=== PATIENT | male | born 1980 | race Caucasian/White ===

== ENCOUNTER 2016-04-03 20:03 | Emergency (ER) | payer SELFPAY ==
[2016-04-03] MEDS ORDERED: Tetanus-Diptheria Toxoids* 0.5 ML SYRINGE IM ONE (20:30)
[2016-04-03] MEDS ORDERED: Amoxicillin/Clavulanate TAB* 875 MG PO ONE (21:08)
[2016-04-03] MEDS ORDERED: Tetan/Diph/Pertus SYR(Tdap)* 0.5 ML SYR(BOOSTRIX) use SYR IM ONE (21:10)
[2016-04-03 21:37] VITALS: BP 127/88
--- NOTE | 2016-04-03 21:47 | RAD ---
INDICATION: Left hand crush injury. TECHNIQUE: 2 views of the left hand were obtained. FINDINGS: There is soft tissue swelling present around the distal phalanx of the ring finger. There is a transverse fracture extending through the tuft of the distal phalanx of the ring finger. The fracture fragments are slightly distracted and otherwise nondisplaced. Joint spaces appear maintained. IMPRESSION: TRANSVERSE FRACTURE OF THE TUFT OF THE DISTAL PHALANX OF THE RING FINGER.
--- NOTE | 2016-04-03 22:18 | ED ---
Chet Hernandez Aidan, scribed for Yasir Troncoso MD on 04/03/16 at 2110 . Laceration/Wound HPI - HPI Summary HPI Summary: 35 y/o male presents to the ED with a complaint of an acute, constant, mildly painful (2/10) laceration half way up the nail on his left ring finger that resulted from a crush injury earlier today. Pt has not had a tetanus shot in the past 5 years. - History of Current Complaint Stated Complaint: LT RING FINGER LAC Time Seen by Provider: 04/03/16 20:22 Hx Obtained From: Patient, Family/Phlebotomy Technician Mechanism of Injury: Other - crush trauma Onset/Duration: Sudden Onset, Lasting Minutes - POULTRY TRIMMER, Still Present Aggravating: Other - unknown Alleviating: Other - unknown Timing: Constant Onset Severity: Moderate Current Severity: Mild Pain Intensity: 2 Pain Scale Used: 0-10 Numeric Associated Signs & Symptoms: Negative - Allergy/Home Medications Allergies/Adverse Reactions: Allergies Allergy/AdvReac Type Severity Reaction Status Date / Time Pollen Extract Allergy Mild Hives Verified 01/27/12 09:59 grass Allergy Mild Hives Uncoded 01/27/12 10:00 trees Allergy Mild Hives Uncoded 01/27/12 10:00 PMH/Surg Hx/FS Hx/Imm Hx Endocrine/Hematology History: Denies: Hx Diabetes, Hx Thyroid Disease Cardiovascular History: Denies: Hx Hypertension Respiratory History: Denies: Hx Asthma, Hx Chronic Obstructive Pulmonary Disease (COPD) GI History: Denies: Hx Ulcer - Surgical History Surgery Procedure, Year, and Place: childhood: Tubes in ears, testicular surgery. T&A Infectious Disease History: No Infectious Disease History: Denies: Hx Clostridium Difficile, Hx Hepatitis, Hx Human Immunodeficiency Virus (HIV), Hx of Known/Suspected MRSA, Hx Shingles, Hx Tuberculosis, Hx Known/ Suspected VRE, Hx Known/Suspected VRSA, History Other Infectious Disease, Traveled Outside the [place] in Last 30 Days - Family History Known Family History: Positive: Hypertension - Social History Occupation: Employed Full-time Lives: With Family Alcohol Use: Occasionally Substance Use Type: Reports: None Smoking Status (MU): Never Smoked Tobacco Have You Smoked in the Last Year: No Review of Systems Constitutional: Negative Eyes: Negative ENT: Negative Cardiovascular: Negative Respiratory: Negative Gastrointestinal: Negative Genitourinary: Negative Musculoskeletal: Negative Skin: Other - laceration half way up the nail of the left ring finger. Negative: Rash, Bruising All Other Systems Reviewed And Are Negative: Yes Physical Exam Triage Information Reviewed: Yes Vital Signs On Initial Exam: Initial Vitals Temp Pulse Resp BP Pulse Ox 99 F 83 18 144/88 99 04/03/16 20:05 04/03/16 20:05 04/03/16 20:05 04/03/16 20:05 04/03/16 20:05 Vital Signs Reviewed: Yes Appearance: Positive: Well-Appearing - comfortable, pleasant, alert, No Pain Distress Skin: Positive: Warm, Skin Color Reflects Adequate Perfusion, Dry, Other - laceration half way up the nail of the left ring finger. ENT: Positive: Other - moist mucosa Neck: Positive: Supple, Nontender - soft, Other: - no edema Respiratory/Lung Sounds: Positive: Clear to Auscultation, Breath Sounds Present. Negative: Rales, Rhonchi, Wheezes Cardiovascular: Positive: RRR, Pulses are Symmetrical in both Upper and Lower Extremities, Other - no gallops, S1, S2. Negative: Murmur, Rub Abdomen Description: Positive: Nontender, Soft. Negative: Distended - flat Bowel Sounds: Positive: Present Musculoskeletal: Positive: Other - no calf tenderness. Negative: Edema Left, Edema Right Neurological: Positive: Alert, Oriented to Person Place, Time Procedures - Laceration/Wound Repair 1 Location: upper extremity - left ring finger Description: Linear Anesthesia: Lido - zilocaine 2CCs, digital block Betadine Prep?: Yes - x3, sterile technique used Irrigated w/ Saline (ccs): 2 - 2CCs Laceration/Wound Explored: clean Suture Type: Prolene Number of Sutures: 4 - simple interrupted sutures Layer Closure?: Yes Diagnostics - Vital Signs Vital Signs Temp Pulse Resp BP Pulse Ox 04/03/16 20:05 99 F 83 18 144/88 99 - Laboratory Lab Statement: Any lab studies that have been ordered have been reviewed, and results considered in the medical decision making process. Laceration Repair Course/Dx - Course Course Of Treatment: Crush injury left distal phalanx ring finger repaired, bone was exposed. We will prescribe antibiotics. It was likely a compound fracture. He will follow up with a hand specialist. We described wound care in detail and he and his listened intently on signs that should prompt them to return to the ER in order to eliminate the change of infection. - Differential Dx Differental Diagnoses: Avulsion, Bite Injury, Cellulitis, Compartment Syndrome, Dehiscence, Foreign Body, Fracture, Healing Wound, Joint Space Violation, Joint Infection, Laceration, Tendon Laceration, Tenosynovitis - Clinical Impression Provider Diagnoses: Crushing injury of left ring finger Discharge - Discharge Plan Condition: Good Disposition: HOME Prescriptions: Amoxicillin/Clavulanate TAB* [Augmentin TAB 875*] 875 mg PO BID #10 tab Patient Education Materials: Laceration (ED) Referrals: No Primary Care Phys,NOPCP [Primary Care Provider] - Jyoti Casiano MD [Medical Doctor] - The documentation as recorded by the Chet mejia Aidan accurately reflects the service I personally performed and the decisions made by me, Yasir Troncoso MD.
== END 2016-04-03 21:36 | disposition home or self-care (01) ==
LOC: ED 20:03
DX: S67.195A Crushing injury of left ring finger, initial encounter (principal); S62.635A Displaced fracture of distal phalanx of left ring finger, initial encounter for closed fracture; X58.XXXA Exposure to other specified factors, initial encounter; Y92.9 Unspecified place or not applicable; Z23 Encounter for immunization
CPT/HCPCS: 12031; 90471; 99283; A9270-GY

== ENCOUNTER 2017-08-05 14:29 | Emergency (ER) | payer SELFPAY ==
[2017-08-05 14:40] VITALS: BP 116/80
[2017-08-05] MEDS ORDERED: Lidocaine 1% MPF* 2 ML VIAL INJ ONE (15:08)
--- NOTE | 2017-08-05 15:14 | UC ---
Laceration HPI - HPI Summary HPI Summary: 37 yo male caught his right upper eyelid on a metal hook this AM his tetanus is up to date no injury to eye itself pain 05/08 - History Of Current Complaint Chief Complaint: UCEye Stated Complaint: RIGHT EYE INJURY Time Seen by Provider: 08/05/17 14:57 Hx Obtained From: Patient Laceration Location: Eye - right upper eyelid Mechanism Of Injury: Sharp Trauma Onset/Duration: Sudden Onset Severity: Mild Pain Intensity: 3 Pain Scale Used: 0-10 Numeric Aggravating Factors: Position Facial Trauma: 1 - flap laceration - Allergies/Home Medications Allergies/Adverse Reactions: Allergies Allergy/AdvReac Type Severity Reaction Status Date / Time pollen extracts Allergy Hives Verified 08/05/17 14:41 grass Allergy Mild Hives Uncoded 01/27/12 10:00 trees Allergy Mild Hives Uncoded 01/27/12 10:00 Home Medications: Home Medications Multivitamin [Multivitamins] 1 cap PO DAILY 08/05/17 [History Confirmed 08/05/17 ] PMH/Surg Hx/FS Hx/Imm Hx Previously Healthy: Yes - Surgical History Surgical History: Yes Surgery Procedure, Year, and Place: childhood: Tubes in ears, testicular surgery. T&A - Family History Known Family History: Positive: Hypertension, Other - cancer - Social History Alcohol Use: Weekly Substance Use Type: None Smoking Status (MU): Never Smoked Tobacco Have You Smoked in the Last Year: No - Immunization History Most Recent Tetanus Shot: 2017 Review of Systems Constitutional: Negative Skin: Negative Eyes: Negative ENT: Negative Respiratory: Negative Cardiovascular: Negative Gastrointestinal: Negative Genitourinary: Negative Motor: Negative Neurovascular: Negative Musculoskeletal: Negative Neurological: Negative Psychological: Negative Is Patient Immunocompromised?: No All Other Systems Reviewed And Are Negative: Yes Physical Exam Triage Information Reviewed: Yes Appearance: Well-Appearing, No Pain Distress, Well-Nourished Vital Signs: Initial Vital Signs Temp 98.2 F 08/05/17 14:35 Pulse 79 08/05/17 14:35 Resp 16 08/05/17 14:35 BP 116/80 08/05/17 14:35 Pulse Ox 98 08/05/17 14:35 Vital Signs Reviewed: Yes Eyes: Positive: Conjunctiva Clear, Other: - EOMI/PERRL ENT: Positive: Hearing grossly normal. Negative: Nasal congestion, Nasal drainage, Trismus, Muffled voice, Hoarse voice Neck: Positive: Supple Respiratory: Positive: Lungs clear, Normal breath sounds, No respiratory distress, No accessory muscle use Cardiovascular: Positive: RRR, No Murmur Musculoskeletal: Positive: ROM Intact, No Edema Neurological: Positive: Alert Psychological Exam: Normal Skin Exam: Other - Lac right upper eyelid Laceration Repair - Laceration Repair 1 Description: Irregular - V shaped flap laceration Laceration Size After Repair: Length (cm) - 0.5, Width (mm) - 3, Depth (mm) - 1- 2 Modified For Repair: No Type Injection: Local Anesthesia Used: 1.0% Lido Cleansing Completed Via Routine Prep: Yes Irrigation With Pressure Irrigation Device: Yes Suture Of: SQ - 1 6-0 vicryl suture used to pull apex of flap into postion Suture Type: Vicryl Laceration Course/Dx - Differential Dx - Laceration/Wound Provider Diagnoses: laceration repair of right upper eyelid laceration Discharge - Sign-Out/Discharge Documenting (check all that apply): Discharge/Admit/Transfer - Discharge Plan Condition: Improved Disposition: HOME Patient Education Materials: Facial Laceration (ED) Referrals: No Primary Care Phys,NOPCP [Primary Care Provider] - Additional Instructions: you had a superficial flap laceration the flap was pulled into position with a single absorbable sutere staring tomorrow gently clean twice daily with soap and water air dry apply a thin film of antibiotic ointment wear bandaid at work you may ice injury don't apply ice directly to wound but have washcloth between ice and wound call for any questions return for any problems - Billing Disposition and Condition Condition: IMPROVED Disposition: Home
[2017-08-05] MEDS ORDERED: Lidocaine 1%* 5 ML VIAL ONE (15:17)
== END 2017-08-05 16:00 | disposition home or self-care (01) ==
LOC: UCEAST 14:29
DX: S01.111A Laceration without foreign body of right eyelid and periocular area, initial encounter (principal); W26.8XXA Contact with other sharp object(s), not elsewhere classified, initial encounter; Y93.9 Activity, unspecified; Y92.9 Unspecified place or not applicable; Z82.49 Family history of ischemic heart disease and other diseases of the circulatory system; Z80.9 Family history of malignant neoplasm, unspecified
CPT/HCPCS: 12011; 99211; G0463

== ENCOUNTER 2017-08-09 10:34 | Emergency (ER) | payer OTHER ==
[2017-08-09 10:55] VITALS: BP 140/86
--- NOTE | 2017-08-09 11:44 | UC ---
HPI Wound/Suture Re-check - HPI Summary HPI Summary: s/p lac repair of right eyelid(upper) 4 days ago using triple antibiotic oint now red/swollen and itchy - History Of Current Complaint Chief Complaint: UCSkin Stated Complaint: EYE INJURY Time Seen by Provider: 08/09/17 10:58 Hx Obtained From: Patient Onset/Duration: Gradual Onset Severity: Mild Pain Intensity: 0 Pain Scale Used: 0-10 Numeric - Allergies/Home Medications Allergies/Adverse Reactions: Allergies Allergy/AdvReac Type Severity Reaction Status Date / Time bacitracin Allergy Rash And Verified 08/09/17 10:48 [From Triple Antibiotic] Itching neomycin Allergy Rash And Verified 08/09/17 10:48 [From Triple Antibiotic] Itching pollen extracts Allergy Hives Verified 08/09/17 10:46 polymyxin B Allergy Rash And Verified 08/09/17 10:48 [From Triple Antibiotic] Itching grass Allergy Mild Hives Uncoded 08/09/17 10:46 trees Allergy Mild Hives Uncoded 08/09/17 10:46 PMH/Surg Hx/FS Hx/Imm Hx Previously Healthy: Yes - Surgical History Surgical History: Yes Surgery Procedure, Year, and Place: childhood: Tubes in ears, testicular surgery. T&A - Family History Known Family History: Positive: Hypertension, Other - cancer - Social History Alcohol Use: Occasionally Substance Use Type: None Smoking Status (MU): Never Smoked Tobacco Have You Smoked in the Last Year: No - Immunization History Most Recent Tetanus Shot: 2016 Review of Systems Constitutional: Negative Skin: Rash Eyes: Negative ENT: Negative Respiratory: Negative Cardiovascular: Negative Gastrointestinal: Negative Genitourinary: Negative Motor: Negative Neurovascular: Negative Musculoskeletal: Negative Neurological: Negative Psychological: Negative Is Patient Immunocompromised?: No All Other Systems Reviewed And Are Negative: Yes Physical Exam Triage Information Reviewed: Yes Appearance: Well-Appearing, No Pain Distress, Well-Nourished Vital Signs: Initial Vital Signs Temp 98.3 F 08/09/17 10:48 Pulse 81 08/09/17 10:48 Resp 18 08/09/17 10:48 BP 140/86 08/09/17 10:48 Pulse Ox 97 08/09/17 10:48 Vital Signs Reviewed: Yes Eyes: Positive: Conjunctiva Clear Neck: Positive: Supple Respiratory: Positive: No respiratory distress, No accessory muscle use Neurological: Positive: Alert Psychological Exam: Normal Skin Exam: Other - red/swollen c/w contact derm Course/Dx - Differential Dx - Laceration/Wound Provider Diagnoses: contact dermatitis right upper eyelid Discharge - Sign-Out/Discharge Documenting (check all that apply): Discharge/Admit/Transfer - Discharge Plan Condition: Stable Disposition: HOME Patient Education Materials: Contact Dermatitis (ED) Referrals: No Primary Care Phys,NOPCP [Primary Care Provider] - Additional Instructions: cool compresses benadryl 25 mg 2 at bedtime you can use aquaphor healing ointment (thin film) NO STEROID CR you are sensitive to the triple antibiotic ointment - Billing Disposition and Condition Condition: STABLE Disposition: Home
== END 2017-08-09 11:15 | disposition home or self-care (01) ==
LOC: UCEAST 10:34
DX: L23.3 Allergic contact dermatitis due to drugs in contact with skin (principal); T49.0X5A Adverse effect of local antifungal, anti-infective and anti-inflammatory drugs, initial encounter; Y92.9 Unspecified place or not applicable; Z88.3 Allergy status to other anti-infective agents; Z82.49 Family history of ischemic heart disease and other diseases of the circulatory system
CPT/HCPCS: 99211; G0463

== ENCOUNTER 2018-04-14 19:04 | Emergency (ER) | payer OTHER ==
[2018-04-14 19:48] VITALS: BP 146/94
--- NOTE | 2018-04-14 20:27 | UC ---
Shoulder Pain HPI - HPI Summary HPI Summary: 37 y/o male presents to the urgent care c/o chest congestion, cough, sore throat started wednesday morning. Also feels he has tear in rotator cuff in right shoulder - History of Current Complaint Chief Complaint: UCGeneralIllness Stated Complaint: SHOULDER PAIN, CHEST CONGESTION, AND SORE THROAT Time Seen by Provider: 04/14/18 20:23 Hx Obtained From: Patient Onset/Duration: Gradual Onset, Lasting Days Pain Intensity: 4 - Allergies/Home Medications Allergies/Adverse Reactions: Allergies Allergy/AdvReac Type Severity Reaction Status Date / Time bacitracin Allergy Rash And Verified 04/14/18 19:48 [From Triple Antibiotic] Itching neomycin Allergy Rash And Verified 04/14/18 19:48 [From Triple Antibiotic] Itching pollen extracts Allergy Hives Verified 04/14/18 19:48 polymyxin B Allergy Rash And Verified 04/14/18 19:48 [From Triple Antibiotic] Itching grass Allergy Mild Hives Uncoded 08/09/17 10:46 trees Allergy Mild Hives Uncoded 08/09/17 10:46 Home Medications: Home Medications Phenylephrine/Dm/Acetaminop/GG [Sudafed PE Pressure+Pain+Cold] 1 tab PO Q8HR [History Confirmed 04/14/18] PMH/Surg Hx/FS Hx/Imm Hx - Surgical History Surgical History: Yes Surgery Procedure, Year, and Place: childhood: Tubes in ears, testicular surgery. T&A - Family History Known Family History: Positive: Hypertension, Other - cancer - Social History Alcohol Use: Occasionally Substance Use Type: None Smoking Status (MU): Never Smoked Tobacco Have You Smoked in the Last Year: No - Immunization History Most Recent Tetanus Shot: 2017 Physical Exam - Summary Physical Exam Summary: VITAL SIGNS: Reviewed. GENERAL: Patient is a well developed and nourished male who is sitting comfortable in the examining table. Patient is not in any acute respiratory distress. HEAD AND FACE: No signs of trauma. No ecchymosis, hematomas or skull depressions. No sinus tenderness. EYES: PERRLA, EOMI x 2, No injected conjunctiva, no nystagmus. No photophobia. EARS: Hearing grossly intact. Ear canals and tympanic membranes are within normal limits. Nose: edematous and erythematous nasal mucosa w/ clear nasal discharge. MOUTH: Positive no erythema, no tonsillar enlargement. Uvula in midline. NECK: Supple, trachea is midline, Positive anterior cervical lymphadenopathy, no JVD, no carotid bruit, no c-spine tenderness, neck with full ROM. No meningeal signs, no Kernig's or brudzinskis signs. CHEST: Symmetric, no tenderness at palpation LUNGS: Clear to auscultation bilaterally. No wheezing or crackles. CVS: Regular rate and rhythm, S1 and S2 present, no murmurs or gallops appreciated. ABDOMEN: Soft, non-tender. No signs of distention. No rebound no guarding, and no masses palpated. Bowel sounds are normal. EXTREMITIES: FROM in all major joints, no edema, no cyanosis or clubbing. Musculoskeletal: LF shoulder: The L shoulder is with/without obvious asymmetry or deformity when compared to the R shoulder. posterior shoulder w/ ecchymosis and bruising, no crepitus. No bony deformity or prominence of humeral head. No erythema, warmth. No Point Tenderness to palpation over the clavicle, or scapula. positive tenderness over Acromioclavicular joint and humeral head with mild swelling, NT to palpation of the bicipital groove . NT to palpation of the muscles of the sternocleidomastoid, pectoralis, biceps/triceps , deltoid, trapezius, . Limited ROM due to pain especially in adduction and abduction.on both passive and active, internal/external rotation, flexion/ extension. "empty can and drop arm test unable to perform due to pain. No axillary tenderness or lymphadenopathy. Normal sensation over the deltoid and fingers. Distal motor and neurovascular status is intact. NEURO: Alert and oriented x 3. No acute neurological deficits. Speech is normal and follows commands. SKIN: Dry and warm Triage Information Reviewed: Yes Vital Signs: Initial Vital Signs Temp 98.2 F 04/14/18 19:42 Pulse 100 04/14/18 19:42 Resp 16 04/14/18 19:42 BP 146/94 04/14/18 19:42 Pulse Ox 100 04/14/18 19:42 Shoulder Course/Dx - Differential Dx/Diagnosis Differential Diagnosis/HQI/PQRI: Sprain, Strain, Tendonitis, Other - URI, influenza Provider Diagnosis: Right shoulder pain, Tendonitis of shoulder, right, Influenza A Discharge - Sign-Out/Discharge Documenting (check all that apply): Patient Departure - d/c home All imaging exams completed and their final reports reviewed: No Studies - Discharge Plan Condition: Stable Disposition: HOME Prescriptions: Ibuprofen TAB* [Motrin TAB* 800 MG] 800 mg PO Q6H PRN #30 tab PRN Reason: Pain Oseltamivir CAP* [Tamiflu CAP*] 75 mg PO BID #9 cap Patient Education Materials: Influenza (ED) Forms: *Work Release Referrals: [facility] [place] [facility] [Outside] - 2 Days Additional Instructions: 1- Please take the full course of the antiviral to avoid resistance. Encourage hand washing and wear a mask to avoid spreading. 2-Please continue taking Ibuprofen PO q6-8hrs prn as instructed after meals to alleviate fever, and sore throat. Increase fluid intake, eat well, rest and avoid strenuous exercise 3-If symptoms do not improve or worsen please return to the urgent care or f/u with your PCP in 3 days for further evaluation and treatment. 4-Please apply ice, keep your shoulder immobilized with the shoulder sling for 3-4 days and then resume movement slowly 5- Please f/u with Orthopedic Dr norwood or your PCP in 1 week is not improvement of symptoms for further evaluation and treatment. 6- Your BP is elevated today. please decrease salt in your diet, monitor BP and if it continues to be elevated please f/u with your PCP for further management. - Billing Disposition and Condition Condition: STABLE Disposition: Home
[2018-04-14] MEDS ORDERED: Ibuprofen TAB* 400 MG PO ONE (21:32)
[2018-04-14 21:40] LABS: Influenza A Molecular POSITIVE (Negative)
[2018-04-14] MEDS ORDERED: Oseltamivir CAP* 75 MG CAP PO ONE (21:42)
== END 2018-04-14 22:25 | disposition home or self-care (01) ==
LOC: UCEAST 19:04
DX: J10.1 Influenza due to other identified influenza virus with other respiratory manifestations (principal); M75.91 Shoulder lesion, unspecified, right shoulder; M25.511 Pain in right shoulder; Z88.1 Allergy status to other antibiotic agents; Z91.09 Other allergy status, other than to drugs and biological substances
CPT/HCPCS: 87651; 99212; A9270-GY; G0463

== ENCOUNTER 2018-06-08 18:44 | Emergency (ER) | payer OTHER ==
[2018-06-08 19:24] VITALS: BP 114/68
--- NOTE | 2018-06-08 20:26 | UC ---
Ear Complaint HPI - HPI Summary HPI Summary: 38-year-old male comes in with a chief complaint of foreign body in his left ear canal. He had been using Q-tips to clean is ears and he noticed some of the cotton was missing. Today when he put his earplugs at work he could feel that cotton moving around in his ear canal. No fevers or chills no runny nose. - History of Current Complaint Chief Complaint: UCEar Stated Complaint: EAR COMPLAINT Time Seen by Provider: 06/08/18 19:50 Pain Intensity: 0 - Allergies/Home Medications Allergies/Adverse Reactions: Allergies Allergy/AdvReac Type Severity Reaction Status Date / Time bacitracin Allergy Rash And Verified 06/08/18 19:25 [From Triple Antibiotic] Itching neomycin Allergy Rash And Verified 06/08/18 19:25 [From Triple Antibiotic] Itching pollen extracts Allergy Hives Verified 06/08/18 19:25 polymyxin B Allergy Rash And Verified 06/08/18 19:25 [From Triple Antibiotic] Itching grass Allergy Mild Hives Uncoded 06/08/18 19:25 trees Allergy Mild Hives Uncoded 06/08/18 19:25 PMH/Surg Hx/FS Hx/Imm Hx Previously Healthy: Yes - Surgical History Surgical History: Yes Surgery Procedure, Year, and Place: childhood: Tubes in ears, testicular surgery. T&A - Family History Known Family History: Positive: Hypertension, Diabetes, Other - cancer - Social History Alcohol Use: Weekly Substance Use Type: None Smoking Status (MU): Never Smoked Tobacco Have You Smoked in the Last Year: No - Immunization History Most Recent Tetanus Shot: 2017 Review of Systems All Other Systems Reviewed And Are Negative: Yes Constitutional: Positive: Negative Skin: Positive: Negative Eyes: Positive: Negative ENT: Positive: Ear Ache Respiratory: Positive: Negative Cardiovascular: Positive: Negative Gastrointestinal: Positive: Negative Motor: Positive: Negative Neurovascular: Positive: Negative Musculoskeletal: Positive: Negative Neurological: Positive: Negative Psychological: Positive: Negative Is Patient Immunocompromised?: No Physical Exam Triage Information Reviewed: Yes Appearance: Well-Appearing, No Pain Distress, Well-Nourished Vital Signs: Initial Vital Signs Temp 98.9 F 06/08/18 19:21 Pulse 74 06/08/18 19:21 Resp 16 06/08/18 19:21 BP 114/68 06/08/18 19:21 Pulse Ox 98 06/08/18 19:21 Vital Signs Reviewed: Yes Eye Exam: Normal Eyes: Positive: Conjunctiva Clear ENT: Positive: TMs normal, Other - COTTON IN LEFT EAR CANAL Neck: Positive: Supple Respiratory: Positive: Lungs clear, Normal breath sounds, No respiratory distress Cardiovascular: Positive: RRR Musculoskeletal Exam: Normal Musculoskeletal: Positive: Strength Intact, ROM Intact Neurological Exam: Normal Neurological: Positive: Alert, Muscle Tone Normal Psychological Exam: Normal Psychological: Positive: Age Appropriate Behavior Skin Exam: Normal Ear Complaint Course/Dx - Course Course Of Treatment: COTTON CAME OUT WITH EAR IRRIGATION BY NURSING. - Differential Dx/Diagnosis Provider Diagnosis: Foreign body in left ear Discharge - Sign-Out/Discharge Documenting (check all that apply): Patient Departure All imaging exams completed and their final reports reviewed: No Studies - Discharge Plan Condition: Stable Disposition: HOME Patient Education Materials: Ear Foreign Body (ED) Referrals: [facility] [place] [facility] [Outside] Additional Instructions: FOLLOW UP WITH YOUR DOCTOR IF NOT COMPLETELY IMPROVED. GET REEVALUATED SOONER FOR ANY WORSENING OF YOUR CONDITION OR ANY QUESTIONS OR CONCERNS. - Billing Disposition and Condition Condition: STABLE Disposition: Home
== END 2018-06-08 20:40 | disposition home or self-care (01) ==
LOC: UCEAST 18:44
DX: T16.2XXA Foreign body in left ear, initial encounter (principal); X58.XXXA Exposure to other specified factors, initial encounter; Y93.E8 Activity, other personal hygiene; Y92.9 Unspecified place or not applicable; Z88.3 Allergy status to other anti-infective agents; Z91.048 Other nonmedicinal substance allergy status
CPT/HCPCS: 99212; G0463

== ENCOUNTER 2019-01-07 13:17 | Emergency (ER) | payer OTHER ==
--- OUTSIDE RECORDS SUMMARY | 2019-01-07 13:23 | XMS REPORT | Continuity of Care Document ---
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 Problems Description No Information Available Social History Type Date Description Comments Sex Unknown ETOH Use Drinks Alcoholic Beverages Occasionally Tobacco Use Start: Unknown Patient smoking status is unknown Recreational Drug Use Denies Drug Use Smoking Status Reviewed: 12/12/18 Patient smoking status is unknown Exercise Type/Frequency Exercises sporadically Allergies, Adverse Reactions, Alerts Active Allergies Reaction Severity Comments Date Triple Antibiotic Ointment 12/12/2018 Medications Active Medications SIG Qnty Indications Ordering Provider Date Ibuprofen prn Unknown Immunizations Description No Information Available Vital Signs Date Vital Result Comment 12/12/2018 7:05am Height 71 inches 5'11" Weight 238.00 lb Heart Rate 68 /min BP Systolic 138 mmHg BP Diastolic 84 mmHg O2 % BldC Oximetry 97 % BMI (Body Mass Index) 33.2 kg/m2 Neck Circumference in inches 19 04/15/2016 8:42am Height 71 inches 5'11" Weight 235.00 lb Heart Rate 60 /min Respiratory Rate 16 /min Pain Level 0 BMI (Body Mass Index) 32.8 kg/m2 Results Description No Information Available Procedures Description No Information Available Medical Devices Description No Information Available Encounters Description No Information Available Assessments Date Code Description Provider 12/12/2018 R06.83 Snoring Dinorah Nuñez MD 12/12/2018 R53.83 Other fatigue Dinorah Nuñez MD Plan of Treatment Future Appointment(s):01/23/2019 8:30 am - Joyti Lan, GUARD ENTRANCE REGISTRAR at [facility]12/12/2018 - Dinorah Nuñez, MDR06.83 SnoringNew Orders:Sleep Study, Ordered: 12/12/18Follow up:6 [id number] Other fatigue Functional Status Description No Information Available Mental Status Description No Information Available Referrals Description No Information Available
[2019-01-07 13:27] VITALS: BP 155/92
--- NOTE | 2019-01-07 13:29 | UC ---
Ear Complaint HPI - HPI Summary HPI Summary: Sore throat with left ear pain over the past 2 days. Pt has had a cough over the past week or so but he attributes that to his seasonal allergies and change of weather at this time of year. - History of Current Complaint Chief Complaint: UCGeneralIllness Stated Complaint: SORE THROAT AND EAR BLANK Time Seen by Provider: 01/07/19 13:26 Hx Obtained From: Patient Onset/Duration: Gradual Onset Severity Initially: Mild Severity Currently: Mild Pain Intensity: 1 Aggravating Factors: Nothing Alleviating Factors: Nothing Associated Signs/Symptoms: Positive: URI Symptoms - Minimla...morer associated with seasonal allergies. - Allergies/Home Medications Allergies/Adverse Reactions: Allergies Allergy/AdvReac Type Severity Reaction Status Date / Time bacitracin Allergy Rash And Verified 01/07/19 13:27 [From Triple Antibiotic] Itching neomycin Allergy Rash And Verified 01/07/19 13:27 [From Triple Antibiotic] Itching pollen extracts Allergy Hives Verified 01/07/19 13:27 polymyxin B Allergy Rash And Verified 01/07/19 13:27 [From Triple Antibiotic] Itching grass Allergy Mild Hives Uncoded 01/07/19 13:27 trees Allergy Mild Hives Uncoded 01/07/19 13:27 Home Medications: Home Medications NK [No Home Medications Reported] 01/07/19 [History Confirmed 01/07/19] PMH/Surg Hx/FS Hx/Imm Hx Previously Healthy: Yes Respiratory History: Asthma - Childhood asthma - Surgical History Surgical History: Yes Surgery Procedure, Year, and Place: childhood: Tubes in ears, testicular surgery. T&A - Family History Known Family History: Positive: Hypertension, Diabetes, Other - cancer - Social History Alcohol Use: Weekly Substance Use Type: None Smoking Status (MU): Never Smoked Tobacco Have You Smoked in the Last Year: No - Immunization History Most Recent Tetanus Shot: 2017 Review of Systems All Other Systems Reviewed And Are Negative: Yes ENT: Positive: Sore Throat, Ear Ache - Pt unsure whether sore throat pain is radiating up to left ear or earache is radiating down to throat. Respiratory: Positive: Cough - "Change of seasons cough" Not new for this patient. Is Patient Immunocompromised?: No Physical Exam Triage Information Reviewed: Yes Appearance: Well-Appearing, No Pain Distress, Well-Nourished Vital Signs: Initial Vital Signs Temp 97.4 F 01/07/19 13:23 Pulse 74 01/07/19 13:23 Resp 18 01/07/19 13:23 BP 155/92 01/07/19 13:23 Pulse Ox 98 01/07/19 13:23 Vital Signs Reviewed: Yes Eyes: Positive: Conjunctiva Clear ENT: Positive: Pharyngeal erythema, TMs normal - No infection but a lot of scarring from many childhood ear infections., Tonsillar swelling - Minimal tonsillar swelling, Uvula midline. Negative: Tonsillar exudate, Trismus, Muffled voice, Hoarse voice Neck: Positive: Supple, Nontender, No Lymphadenopathy Respiratory: Positive: Lungs clear, Normal breath sounds, No respiratory distress, No accessory muscle use Cardiovascular: Positive: RRR, No Murmur, Pulses Normal, Brisk Capillary Refill Musculoskeletal: Positive: Strength Intact, ROM Intact Neurological: Positive: Alert, Muscle Tone Normal Psychological Exam: Normal Skin Exam: Normal Ear Complaint Course/Dx - Course Course Of Treatment: Rapid strep:negative. - Differential Dx/Diagnosis Provider Diagnosis: Pharyngitis Discharge ED - Sign-Out/Discharge Documenting (check all that apply): Patient Departure All imaging exams completed and their final reports reviewed: No Studies - Discharge Plan Condition: Good Disposition: HOME Patient Education Materials: Pharyngitis (ED) Referrals: Ileana Amaya PA [Primary Care Provider] - Additional Instructions: Increase fluids, warm salt water gargles, throat lozenges. Tylenol as directed for pain. May alternate with Motrin every 8 hours as needed. See your primary care doctor in 4-5 days if no improvement. - Billing Disposition and Condition Condition: GOOD Disposition: Home
== END 2019-01-07 14:05 | disposition home or self-care (01) ==
LOC: UCEAST 13:17
DX: J02.9 Acute pharyngitis, unspecified (principal); J45.909 Unspecified asthma, uncomplicated; Z91.09 Other allergy status, other than to drugs and biological substances; Z88.1 Allergy status to other antibiotic agents; H92.02 Otalgia, left ear
CPT/HCPCS: 87651; 99211; G0463

== ENCOUNTER 2019-05-10 12:06 | Emergency (ER) | payer OTHER ==
--- OUTSIDE RECORDS SUMMARY | 2019-05-10 12:11 | XMS REPORT | Continuity of Care Document ---
:1980 External Reference #:[id number] Author Name Jyoti Lan NP (transmitted by agent of provider Tayla Roberts) Address [address] [facility], [address] [place] [id number] Care Team Providers Name Role Phone Ileana Amaya PA - Physician Care Team Information Transitional Care Nurse [phone] [employer] Section Supervisor Problems Description No Information Available Social History Type Date Description Comments Sex Unknown ETOH Use Drinks Alcoholic Beverages Occasionally Tobacco Use Start: Unknown Patient smoking status is unknown Recreational Drug Use Denies Drug Use Smoking Status Reviewed: 04/19/19 Patient smoking status is unknown Exercise Type/Frequency Exercises sporadically Allergies, Adverse Reactions, Alerts Active Allergies Reaction Severity Comments Date Triple Antibiotic Ointment 12/12/2018 Medications Active Medications SIG Qnty Indications Ordering Provider Date Ibuprofen prn Unknown Immunizations Description No Information Available Vital Signs Date Vital Result Comment 04/19/2019 7:47am Height 71 inches 5'11" Weight 238.00 lb Heart Rate 74 /min BP Systolic 128 mmHg BP Diastolic 80 mmHg O2 % BldC Oximetry 97 % BMI (Body Mass Index) 33.2 kg/m2 02/27/2019 2:16pm Height 71 inches 5'11" Weight 238.00 lb Heart Rate 87 /min BP Systolic 104 mmHg BP Diastolic 60 mmHg O2 % BldC Oximetry 97 % BMI (Body Mass Index) 33.2 kg/m2 Results Description No Information Available Procedures Date Code Description Status 02/06/2019 33145 Polysomnography Sleep Staging 4+ Parameters Completed Medical Devices Description No Information Available Encounters Type Date Location Provider Dx Diagnosis Office Visit 04/19/2019 [facility] G47.33 Obstructive sleep 8:00a [facility] apnea (adult) [employer] [facility] (pediatric) R53.83 Other fatigue Office Visit 02/27/2019 [facility] G47.33 Obstructive sleep 2:00p [facility] apnea (adult) [facility] (pediatric) R53.83 Other fatigue Office Visit 12/12/2018 7:30a [facility] Dinorah Nuñez, R06.83 [facility] R53.83 Other fatigue Assessments Date Code Description Provider 04/19/2019 G47.33 Obstructive sleep apnea (adult) (pediatric) Jyoti Lan NP 04/19/2019 R53.83 Other fatigue Jyoti Lan NP 02/27/2019 G47.33 Obstructive sleep apnea (adult) (pediatric) Jyoti Lan NP 02/27/2019 R53.83 Other fatigue Jyoti Lan NP 02/06/2019 G47.33 Obstructive sleep apnea (adult) (pediatric) Dinorah Nuñez MD 12/12/2018 R06.83 Snoring Dinorah Nuñez MD 12/12/2018 R53.83 Other fatigue Dinorah Nuñez MD Plan of Treatment Future Appointment(s):07/18/2019 8:00 am - Jyoti Lan NP at [facility]04/19/2019 - Jyoti Lan [id number] Obstructive sleep apnea (adult) (pediatric)Follow up:3 monthsRecommendations: Try setting a bedtime alarm in case you fall asleep on the couch so you can get to bed and use your CPAP. Try using a softer pillow to help with mask leak. Also try increasing the humidifier setting tohelp with mouth dryness. If you have difficulty with your equipment, or need to replace your mask or hoses, please contact your homecare agency., [facility] [employer] If you have any further questions, please call the [facility] at If you have any sleepiness while driving you MUST avoid operating a vehicle or machinery. If you feel tired while driving pull overand take a nap or switch drivers. If you know you are sleepy and need to go somewhere, arrange for aride or use public transportation. It is very important to not risk your safety or the safety of others.R53.83 Other fatigue Functional Status Description No Information Available Mental Status Description No Information Available Referrals Description No Information Available
[2019-05-10 14:01] VITALS: BP 115/78
--- NOTE | 2019-05-10 14:09 | UC ---
FLU HPI - HPI Summary HPI Summary: 39-year-old male presents with onset of general malaise, fatigue, body aches, sore throat, mild nasal congestion, and cough yesterday. No recent travel or known sick contact. Denies fever, chills, ear pain, dysphagia, chest pain, shortness of breath, abdominal pain, nausea, vomiting, or diarrhea. - History of Current Complaint Chief Complaint: UCRespiratory Stated Complaint: BODYACHES, CONGESTION Time Seen by Provider: 05/10/19 14:02 Hx Obtained From: Patient Pain Intensity: 2 - Allergy/Home Medications Allergies/Adverse Reactions: Allergies Allergy/AdvReac Type Severity Reaction Status Date / Time bacitracin Allergy Rash And Verified 05/10/19 14:01 [From Triple Antibiotic] Itching neomycin Allergy Rash And Verified 05/10/19 14:01 [From Triple Antibiotic] Itching pollen extracts Allergy Hives Verified 05/10/19 14:01 polymyxin B Allergy Rash And Verified 05/10/19 14:01 [From Triple Antibiotic] Itching grass Allergy Mild Hives Uncoded 05/10/19 14:01 trees Allergy Mild Hives Uncoded 05/10/19 14:01 Home Medications: Home Medications Benzonatate CAP* [Tessalon 100 MG CAP*] 100 mg PO TID PRN #21 cap 05/10/19 [Rx] PMH/Surg Hx/FS Hx/Imm Hx Previously Healthy: Yes - Denies significant PMH - Surgical History Surgical History: Yes Surgery Procedure, Year, and Place: childhood: Tubes in ears, testicular surgery. T&A - Family History Known Family History: Positive: Hypertension, Diabetes, Other - cancer - Social History Occupation: Employed Full-time Lives: With Family Alcohol Use: Weekly Substance Use Type: None Smoking Status (MU): Never Smoked Tobacco Have You Smoked in the Last Year: No - Immunization History Most Recent Tetanus Shot: 2017 Review of Systems All Other Systems Reviewed And Are Negative: Yes Constitutional: Positive: Fatigue. Negative: Fever, Chills Eyes: Negative: Drainage, Eye Redness ENT: Positive: Sore Throat, Nasal Discharge, Sinus Congestion. Negative: Ear Ache, Sinus Pain/Tenderness Respiratory: Positive: Cough. Negative: Shortness Of Breath Cardiovascular: Negative: Palpitations, Chest Pain Gastrointestinal: Negative: Abdominal Pain, Vomiting, Diarrhea, Nausea Genitourinary: Positive: Negative Musculoskeletal: Positive: Negative Neurological/Mental Status: Positive: Negative Is Patient Immunocompromised?: No Physical Exam - Summary Physical Exam Summary: GENERAL APPEARANCE: Well developed, well nourished, alert and cooperative, and appears to be in no acute distress. EYES: Conjunctiva clear. No drainage. EARS: External auditory canals and tympanic membranes clear, hearing grossly intact. NOSE: Mild nasal congestion. No nasal discharge. THROAT: Mild pharyngeal erythema. Surgically absent tonsils. Uvula midline. NECK: Neck supple, non-tender without lymphadenopathy. CARDIAC: Normal S1 and S2. No S3, S4 or murmurs. Rhythm is regular. There is no peripheral edema, cyanosis or pallor. Extremities are warm and well perfused. Capillary refill is less than 2 seconds. Peripheral pulses intact. LUNGS: Clear to auscultation without rales, rhonchi, wheezing or diminished breath sounds. Dry nonproductive cough. ABDOMEN: Positive bowel sounds. Soft, nondistended, nontender. No guarding or rebound. No masses or hepatosplenomegally. MUSKULOSKELETAL: ROM intact to all extremities. No joint erythema or tenderness. Normal muscular development. Normal gait. SKIN: Skin normal color, texture and turgor with no lesions or eruptions. Triage Information Reviewed: Yes Vital Signs: Initial Vital Signs Temp 97.3 F 05/10/19 13:57 Pulse 73 05/10/19 13:57 Resp 18 05/10/19 13:57 BP 115/78 05/10/19 13:57 Pulse Ox 97 05/10/19 13:57 Vital Signs Reviewed: Yes Flu Course/Dx - Course Course Of Treatment: 39-year-old male presents with onset of general malaise, fatigue, body aches, sore throat, mild nasal congestion, and cough yesterday. No recent travel or known sick contact. Denies fever, chills, ear pain, dysphagia, chest pain, shortness of breath, abdominal pain, nausea, vomiting, or diarrhea. Afebrile. Vital signs stable. Patient had mild nasal congestion, normal TMs, mild pharyngeal erythema with surgically absent tonsils, no cervical lymphadenopathy , clear bilateral breath sounds, dry nonproductive cough, and otherwise unremarkable exam. Rapid flu test was negative. Results were reviewed with the patient. Recommending symptomatic treatment for a viral upper respiratory infection including Tessalon Perles 1 capsule every 8 hours as needed for cough. He is to return here or follow-up with his primary care provider in 5-7 days if symptoms are not improving. Anticipatory guidance and warning symptoms were reviewed with the patient. Verbalizes understanding and agrees with plan of care. - Differential Dx/Diagnosis Differential Diagnosis/HQI/PQRI: Bronchitis, Influenza, Pneumonia, Upper Respiratory Infection Provider Diagnosis: Viral URI with cough Discharge ED - Sign-Out/Discharge Documenting (check all that apply): Patient Departure All imaging exams completed and their final reports reviewed: No Studies - Discharge Plan Condition: Stable Disposition: HOME Prescriptions: Benzonatate CAP* [Tessalon 100 MG CAP*] 100 mg PO TID PRN #21 cap PRN Reason: Cough Patient Education Materials: Upper Respiratory Infection (ED) Referrals: Ileana Amaya PA [Primary Care Provider] - 5 Days Additional Instructions: Your flu test in the clinic today was negative. Get plenty of rest. Drink plenty of fluids to avoid dehydration especially if you are running any fever. Take over the counter acetaminophen (Tylenol) or ibuprofen (Advil, Motrin) according to directions as needed for pain or fever. Use an over the counter decongestant such as Sudafed according to directions for nasal congestion. Take Tessalon Perles 1 cap every 8 hours as needed for cough. Use salt water gargles several times a day if you have a sore throat. You may also use Chloraseptic spray or Cepacol lonzenges according to directions which contain a numbing medication and can provide some temporary relief from your sore throat. Follow up with your primary care provider in 5-7 days if symptoms persist. Seek immediate medical attention in the emergency room if you have fever greater than 100.5 F despite taking acetaminophen or ibuprofen, have chest pain , difficulty breathing, are unable to swallow, or have any worsening of symptoms. - Billing Disposition and Condition Condition: STABLE Disposition: Home
[2019-05-10 14:22] LABS: Influenza A Molecular Negative (Negative); Influenza B Molecular Negative (Negative)
== END 2019-05-10 15:08 | disposition home or self-care (01) ==
LOC: UCEAST 12:06
DX: J06.9 Acute upper respiratory infection, unspecified (principal); R05 Cough; Z91.09 Other allergy status, other than to drugs and biological substances; Z88.1 Allergy status to other antibiotic agents
CPT/HCPCS: 99212; G0463